=== PATIENT | female | born 2000 | race African-American/Black ===

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

== ENCOUNTER 2023-03-31 10:37 | Emergency (ER) | payer OTHER, MEDICAID ==
[~2023-03-31] VITALS: Ht 160 cm; Wt 100.0 kg
[2023-03-31 10:41] VITALS: O2SAT 100
[2023-03-31 11:26] LABS: BASOPHILS % 0.5 % (0.0-2.0); EOSINOPHILS % 2.4 % (0.0-5.0); HEMATOCRIT. 44.3 % (42.0-52.0); LYMPHOCYTES % 23.7 % (20.0-50.0); MEAN CORPUSCULAR HEMOGLOBIN 30.9 pg (28.0-32.0); MEAN CORPUSCULAR HGB CONC 33.8 g/dL (31.0-37.0); MEAN CORPUSCULAR VOLUME 91.2 fL (80.0-94.0); MEAN PLATELET VOLUME 7.6 fl (7.4-10.4); MONOCYTES % 6.2 % (2.0-8.0); NEUTROPHILS % 67.2 % (40.0-76.0); PLATELET 285 x1000/uL (130-400); RED BLOOD CELL COUNT 4.86 mill/uL (4.7-6.1); RED CELL DISTRIBUTION WIDTH 15.1 % (11.6-14.6); WHITE BLOOD COUNT 10.1 x1000/uL (4.5-11.0)
[2023-03-31 11:40] LABS: CALCIUM 9.2 mg/dL (8.7-10.4); CARBON DIOXIDE 25 mEq/L (21-32); CHLORIDE 105 mEq/L (98-107); CREATININE 0.9 mg/dL (0.6-1.3); GLUCOSE 149 mg/dL (70-105); POTASSIUM 3.4 mEq/L (3.5-5.1); SODIUM 139 mEq/L (136-145); UREA NITROGEN BLOOD 7 mg/dL (9-23)
[2023-03-31 11:41] LABS: ETHANOL BLOOD < 10 mg/dL (<10)
[2023-03-31 13:14] LABS: *AMPHETAMINES SCREEN URINE NEGATIVE (NEGATIVE); *BARBITURATES SCREEN URINE NEGATIVE (NEGATIVE); *BENZODIAZEPINES SCREEN URINE NEGATIVE (NEGATIVE); *COCAINE SCREEN URINE NEGATIVE (NEGATIVE); CANNABINOID URINE SCREEN PRESUMPTIVE POSITIVE (NEGATIVE); ECSTASY MDMA SCREEN URINE NEGATIVE (NEGATIVE); METHADONE URINE SCREEN Neg (NEGATIVE); OPIATES URINE SCREEN NEGATIVE (NEGATIVE); PHENCYCLIDINE URINE SCREEN NEGATIVE (NEGATIVE)
[2023-03-31 15:00] VITALS: BP 133/82; PULSE 84; RESP 15; TEMP 98.8
== END 2023-03-31 16:00 | disposition home or self-care (01) ==
LOC: ER 10:37
DX: R45.851 Suicidal ideations (principal); J45.909 Unspecified asthma, uncomplicated
CPT/HCPCS: 36415; 80048; 80305; 80307; 80320; 80329; 81025; 85025; 93005; 99284; G0480

== ENCOUNTER 2024-02-19 15:31 | Emergency (ER) | payer OTHER ==
[~2024-02-19] VITALS: Ht 170.2 cm; Wt 122.0 kg
[~2024-02-19 15:31] MED LIST: ALBU10.7; BUDE1AMP2 NEB; CLAR10 PO; FLUT15.844 BOTHNSTRLS; FLUT1BLS10 IH; GUAI-741 PO; LIP40 PO; METH4TAB95 MT; MONT-46 PO; TEST200V27 IM; TIOT4MIS5 IH
[2024-02-19 15:47] VITALS: BP 146/76; RESP 18; TEMP 99; O2SAT 96
[2024-02-19 15:49] VITALS: PULSE 104; O2SAT 98
[2024-02-19 16:33] LABS: BASOPHILS % 0.4 % (0.0-2.0); EOSINOPHILS % 0.6 % (0.0-5.0); HEMATOCRIT. 45.8 % (42.0-52.0); HEMOGLOBIN. 15.1 g/dL (14.0-18.0); LYMPHOCYTES % 27.4 % (20.0-50.0); MEAN CORPUSCULAR HEMOGLOBIN 28.2 pg (28.0-32.0); MEAN CORPUSCULAR VOLUME 85.4 fL (80.0-94.0); MEAN PLATELET VOLUME 7.4 fl (7.4-10.4); MONOCYTES % 6.8 % (2.0-8.0); NEUTROPHILS % 64.8 % (40.0-76.0); PLATELET 296 x1000/uL (130-400); RED BLOOD CELL COUNT 5.37 mill/uL (4.7-6.1); RED CELL DISTRIBUTION WIDTH 15.5 % (11.6-14.6); WHITE BLOOD COUNT 9.2 x1000/uL (4.5-11.0)
[2024-02-19 16:38] LABS: CHLORIDE 106 mEq/L (98-107); SODIUM 138 mEq/L (136-145)
[2024-02-19 16:39] LABS: CALCIUM 8.8 mg/dL (8.7-10.4); CARBON DIOXIDE 25 mEq/L (21-32)
[2024-02-19 16:44] LABS: CREATININE 0.8 mg/dL (0.6-1.3); GLUCOSE 127 mg/dL (70-105); UREA NITROGEN BLOOD 12 mg/dL (9-23)
[2024-02-19 18:11] LABS: ALANINE AMINOTRANSFERASE 17 IU/L (10-49); ASPARTATE AMINOTRANSFERASE 13 IU/L (<34); BILIRUBIN TOTAL 0.3 mg/dL (0.1-1.0); PROTEIN TOTAL 6.8 g/dL (6.0-8.3)
[2024-02-19 18:16] LABS: BILIRUBIN DIRECT < 0.1 mg/dL (<=3.0)
== END 2024-02-19 23:33 | disposition left against medical advice (07) ==
LOC: ER 15:31
DX: R10.31 Right lower quadrant pain (principal); F10.90 Alcohol use, unspecified, uncomplicated; F12.90 Cannabis use, unspecified, uncomplicated; J45.909 Unspecified asthma, uncomplicated; Z79.51 Long term (current) use of inhaled steroids; Z79.899 Other long term (current) drug therapy; Y90.9 Presence of alcohol in blood, level not specified
CPT/HCPCS: 80076; 80048; 83605; 83690; 85025; 87040; 36415; 99283; Z7610 ×3

== ENCOUNTER 2024-06-01 03:10 | Emergency (ER) | payer MEDICAID, OTHER ==
[~2024-06-01] VITALS: Ht 160 cm; Wt 119.1 kg
[2024-06-01 03:16] VITALS: BP 146/92; TEMP 36.9; O2SAT 99
[2024-06-01 03:17] VITALS: O2SAT 98
[2024-06-01] MEDS ORDERED: METHYLPREDNISOLONE 40MG/ML INJ IV ONE (04:15)
[2024-06-01 04:40] VITALS: PULSE 78; RESP 20
[2024-06-01] MEDS: IPRATROPIUM/ALBUTEROL 0.5-3(2.5)MG/3ML NEB HHN ONE ×2 (04:40→06:16)
[2024-06-01] MEDS: METHYLPREDNISOLONE SOD SUCC 125MG/2ML (ACT-O-VIAL) IM NR (05:10)
[2024-06-01 05:23] LABS: BASOPHILS % 0.6 % (0.0-2.0); EOSINOPHILS % 0.7 % (0.0-5.0); HEMOGLOBIN. 14.8 g/dL (14.0-18.0); LYMPHOCYTES % 25.6 % (20.0-50.0); MEAN CORPUSCULAR HEMOGLOBIN 28.2 pg (28.0-32.0); MEAN CORPUSCULAR VOLUME 85.4 fL (80.0-94.0); MEAN PLATELET VOLUME 7.2 fl (7.4-10.4); MONOCYTES % 6.9 % (2.0-8.0); NEUTROPHILS % 66.2 % (40.0-76.0); PLATELET 289 x1000/uL (130-400); RED BLOOD CELL COUNT 5.26 mill/uL (4.7-6.1); RED CELL DISTRIBUTION WIDTH 16.3 % (11.6-14.6)
[2024-06-01] MEDS ORDERED: ALBU18HF2 IH (05:42)
[2024-06-01] MEDS ORDERED: P20 MT (05:42)
[2024-06-01 05:44] LABS: CHLORIDE 103 mEq/L (98-107); POTASSIUM 3.7 mEq/L (3.5-5.1); SODIUM 137 mEq/L (136-145)
[2024-06-01 05:45] LABS: CARBON DIOXIDE 25 mEq/L (21-32)
[2024-06-01 05:46] LABS: CALCIUM 9.3 mg/dL (8.7-10.4)
[2024-06-01 05:50] LABS: CREATININE 0.9 mg/dL (0.6-1.3); GLUCOSE 93 mg/dL (70-105); UREA NITROGEN BLOOD 21 mg/dL (9-23)
[2024-06-01 05:58] LABS: TROPONIN I HIGH SENSITIVITY < 4 ng/L (3.0-53)
[2024-06-01] MEDS ORDERED: IBUPROFEN 600MG TABLET PO ONE (06:30)
== END 2024-06-01 06:28 | disposition home or self-care (01) ==
LOC: ER 03:10
DX: J45.901 Unspecified asthma with (acute) exacerbation (principal); Z79.51 Long term (current) use of inhaled steroids; Z79.899 Other long term (current) drug therapy; Z98.890 Other specified postprocedural states; Z88.0 Allergy status to penicillin; F12.90 Cannabis use, unspecified, uncomplicated
CPT/HCPCS: 80048; 85025; 84484; 36415; 71045; 94640; 93005; 98960; 96372; 99285; J2919; Z7610 ×3; 94070; 94664; J2920